=== PATIENT | male | born 1965 | race Caucasian/White ===

== ENCOUNTER 2019-04-15 16:15 | Emergency (ER) | payer MEDICAID ==
[~2019-04-15] VITALS: Ht 182.9 cm; Wt 108.9 kg
[2019-04-15 16:22] VITALS: BP 141/90
--- NOTE | 2019-04-15 16:53 | NUR ---
BIB DAUGHTER C/O CHEST PAIN/ SOB X1 DAY S/P SONS THIS MORNING. SUDDEN ONSET OF PRESSURE IN CHEST RADIATING TO BACK. PT STATES "IT FEELS LIKE IM NOT GETTING ANY OXYGEN INTO MY LUNGS". NO ACCESSORY MUSCLE USE NOTED. LUNG SOUNDS CLEAR IN BILAT LOBES, NO COUGH REPORTED. RESPIRATIONS ARE EVEN AND UNLABORED. PATIENT AAOX4. SKIN DRY, COOL AND IN TACT. PATIENT REPORTS ONE INCIDENT OF INDUCED VOMITING ONCE HIS CHEST BEGAN GIVING HIM PAIN. NO N/D REPORTED. PMH: DM, HTN, GERD TX: LISINOPRIL, METFORMIN, OMEPRAZOLE.
[2019-04-15] MEDS ORDERED: ALUMINUM HYD/MAG/SIMETHICONE 30 ML UDC PO ONE (17:40)
[2019-04-15] MEDS ORDERED: FAMOTIDINE 20 MG TAB PO ONE (17:40)
[2019-04-15] MEDS ORDERED: MORPHINE SULFATE 4 MG/ML SYR IVP ONE (17:40)
[2019-04-15] MEDS ORDERED: LIDOCAINE VISCOUS 2% 20 ML UDC PO ONE (17:40)
[2019-04-15 17:58] LABS: BASOPHILS % (AUTO) 0.4 % (0.0-2.0); EOSINOPHILS # (AUTO) 0.2 K/uL (0-0.4); EOSINOPHILS % (AUTO) 2.3 % (0.0-4.0); HEMOGLOBIN 14.7 g/dL (12.0-18.0); LYMPHOCYTES # (AUTO) 0.5 K/uL (2.0-11.5); MEAN CORPUSCULAR HEMOGLOBIN 28 pg (27-31); MEAN CORPUSCULAR HGB CONC 32 g/dL (33-37); MEAN CORPUSCULAR VOLUME 87.9 fL (80-94); MONOCYTES # (AUTO) 0.6 K/uL (0.8-1.0); MONOCYTES % (AUTO) 5.4 % (1.7-9.3); NEUTROPHILS # (AUTO) 8.9 K/uL (1.8-7.7); NEUTROPHILS % (AUTO) 86.9 % (42.2-75.2); PLATELET COUNT (AUTO) 230 K/uL (140-450); RED BLOOD CELL COUNT(AUTO) 5.23 MIL/uL (4.20-6.10); RED CELL DISTRIBUTION WIDTH 14.8 % (11.6-13.7); WHITE BLOOD COUNT (AUTO) 10.2 K/uL (4.8-10.8)
--- NOTE | 2019-04-15 18:16 | NUR ---
10 MINUTES FOLLOWING THE ADMINISTRATION OF PO MEDS, PT BEGAN HAVING EPISODES OF EMESIS, TOTALING 700ML. PATIENT IS FEELING NAUSEOUS. ERMD NOTIFIED
[2019-04-15] MEDS ORDERED: ONDANSETRON 4 MG/2 ML VIAL IVP ONE (18:20)
[2019-04-15 18:41] LABS: PROTHROMBIN TIME 9.8 secs (10.8-13.4)
[2019-04-15 18:44] LABS: ANION GAP 14.7 (8-16); CARBON DIOXIDE 26.3 mmol/L (21-32); TOTAL BILIRUBIN 0.6 mg/dL (0.0-1.0)
--- NOTE | 2019-04-15 18:51 | NUR ---
PT REQUESTED TO LEAVE AMA. WENT OVER RISK WITH PATIENT. DOCUMENT SIGNED. ERMD NOTIFIED
[2019-04-15 18:52] VITALS: BP 134/79
--- NOTE | 2019-04-15 18:55 | NUR ---
Patient does not wish to proceed with medical care recommended by EMILI. Patient given information related to possible complications, up to and including , which could occur as a result of leaving hospital at this time. Patient verbalizes understanding of risks involved leaving against medical advice. Patient has signed AMA form.
[2019-04-15 18:56] LABS: ALBUMIN 3.8 g/dL (3.4-5.0)
== END 2019-04-15 18:55 | disposition left against medical advice (07) ==
LOC: MED 16:15
DX: K29.70 Gastritis, unspecified, without bleeding (principal); R06.02 Shortness of breath; E11.9 Type 2 diabetes mellitus without complications; K21.9 Gastro-esophageal reflux disease without esophagitis; I10 Essential (primary) hypertension; Z53.29 Procedure and treatment not carried out because of patient's decision for other reasons; Z87.19 Personal history of other diseases of the digestive system
CPT/HCPCS: 36415; 71045; 80053; 83690; 83880; 84484; 85025; 85610; 85730; 93005; 96374; 96375; 99284; J2270; J2405; Q0092